=== PATIENT | female | born 1960 | race Caucasian/White ===

== ENCOUNTER 2024-11-19 13:00 | Outpatient (RCR) | payer OTHER, SELFPAY | END 2024-11-19 23:59 | disposition home or self-care (01) | LOC: RPT 13:00 | PROVIDERS: ATTENDING PHYSICIAN Obstetrics & Gynecology; FAMILY PHYSICIAN Internal Medicine | DX: M62.89 Other specified disorders of muscle (principal); N39.41 Urge incontinence; Z73.6 Limitation of activities due to disability; C53.9 Malignant neoplasm of cervix uteri, unspecified | CPT/HCPCS: 97110; 97112; 97163; 97530 ==

== ENCOUNTER 2024-12-28 15:46 | Outpatient (RCR) | payer OTHER, SELFPAY | END 2024-12-28 23:59 | disposition home or self-care (01) | LOC: RPT 15:46 | PROVIDERS: ATTENDING PHYSICIAN Obstetrics & Gynecology; FAMILY PHYSICIAN Internal Medicine | DX: M62.89 Other specified disorders of muscle (principal); N39.41 Urge incontinence; Z73.6 Limitation of activities due to disability; C53.9 Malignant neoplasm of cervix uteri, unspecified; R53.0 Neoplastic (malignant) related fatigue; G62.0 Drug-induced polyneuropathy; M62.81 Muscle weakness (generalized); R26.89 Other abnormalities of gait and mobility | CPT/HCPCS: 97010; 97110; 97112; 97140; 97530 ==

== ENCOUNTER 2025-01-27 08:56 | Outpatient (RCR) | payer OTHER, SELFPAY | END 2025-01-27 23:59 | disposition home or self-care (01) | LOC: RPT 08:56 | PROVIDERS: ATTENDING PHYSICIAN Obstetrics & Gynecology; FAMILY PHYSICIAN Internal Medicine | DX: M62.89 Other specified disorders of muscle (principal); N39.41 Urge incontinence; Z73.6 Limitation of activities due to disability; C53.9 Malignant neoplasm of cervix uteri, unspecified; R53.0 Neoplastic (malignant) related fatigue; G62.0 Drug-induced polyneuropathy; M62.81 Muscle weakness (generalized); R26.89 Other abnormalities of gait and mobility | CPT/HCPCS: 97110; 97112; 97140; 97530 ==

== ENCOUNTER 2025-02-10 12:20 | Outpatient (RCR) | payer OTHER, SELFPAY | END 2025-02-22 23:59 | disposition home or self-care (01) | LOC: RPT 12:20 | PROVIDERS: ATTENDING PHYSICIAN Obstetrics & Gynecology; FAMILY PHYSICIAN Internal Medicine | DX: M62.89 Other specified disorders of muscle (principal); N39.41 Urge incontinence; Z73.6 Limitation of activities due to disability; C53.9 Malignant neoplasm of cervix uteri, unspecified; R53.0 Neoplastic (malignant) related fatigue; G62.0 Drug-induced polyneuropathy; M62.81 Muscle weakness (generalized); R26.89 Other abnormalities of gait and mobility | CPT/HCPCS: 97110; 97112; 97140 ==

== ENCOUNTER 2025-02-28 09:40 | Outpatient (RCR) | payer OTHER, SELFPAY | END 2025-02-28 23:59 | disposition home or self-care (01) | LOC: RPT 09:40 | PROVIDERS: ATTENDING PHYSICIAN Obstetrics & Gynecology; FAMILY PHYSICIAN Internal Medicine | DX: M62.89 Other specified disorders of muscle (principal); N39.41 Urge incontinence; Z73.6 Limitation of activities due to disability; C53.9 Malignant neoplasm of cervix uteri, unspecified; R53.0 Neoplastic (malignant) related fatigue; G62.0 Drug-induced polyneuropathy; M62.81 Muscle weakness (generalized); R26.89 Other abnormalities of gait and mobility | CPT/HCPCS: 97110; 97530 ==